=== PATIENT | male | born 1950 | race Caucasian/White ===

== ENCOUNTER 2019-02-06 08:32 | Inpatient (IN) | payer MEDICARE, OTHER, SELFPAY ==
[2019-02-03 11:46] VITALS: BMI 29.3
[2019-02-06] VITALS (17 sets, daily range): BP systolic 114–170; BP diastolic 51–99; PULSE 50–70; RESP 10–16; TEMP 35.8–36.6; O2SAT 93–100; BMI 29.3
--- NOTE | 2019-02-06 | DI.RAD.S_ITS ---
PROCEDURE: XR HIP W PEL IF DONE LT 2V INDICATIONS: ANTERIOR HIP ARTHROPLASTY TECHNIQUE: 2 view(s) of the left hip acquired. COMPARISON: [facility], CR, XR PELVIS 1 OR 2 VIEWS, 01/01/2019, 12:11. FINDINGS: Bones: Patient is status post left hip arthroplasty, with hardware components in expected positions. The hip joint appears congruent. The visualized bony structures appear intact. Soft tissues: Overlying postoperative changes are noted. No suspicious soft tissue densities. IMPRESSION: Normal alignment after left total hip arthroplasty. Dictated by: Sanjeev Higuera M.D. on 02/06/2019 at 14:30 Approved by: Sanjeev Higuera M.D. on 02/06/2019 at 14:31
--- NOTE | 2019-02-06 08:39 | DI.RAD.S_ITS ---
PROCEDURE: XR PELVIS 1-2V INDICATIONS: post op films TECHNIQUE: 1 view of the lower pelvis acquired. COMPARISON: Preoperative radiographs 01/01/2019. FINDINGS: Bones: Patient is status post left hip arthroplasty, with hardware components in expected positions. The hip joint appears congruent. The visualized bony structures appear intact. Soft tissues: Overlying postoperative changes are noted. No suspicious soft tissue densities. IMPRESSION: Expected appearance of the left total hip arthroplasty. Dictated by: Dontae Rand M.D. on 02/06/2019 at 15:00 Approved by: Dontae Rnad M.D. on 02/06/2019 at 15:01
[2019-02-06] MEDS: LACTATED RINGERS 1,000 ML 42 ML IV ×2 (10:01→13:54)
[2019-02-06] MEDS: ACETAMINOPHEN 325 MG TABLET 975 MG PO (10:04)
[2019-02-06] MEDS: MELOXICAM 7.5 MG TABLET 15 MG PO (10:05)
[2019-02-06] MEDS: PREGABALIN 75 MG CAPSULE PO (10:05)
--- NOTE | 2019-02-06 10:34 | PM.PREOP ---
Pre-operative Note Interval Note History & Physical reviewed/Exam performed by Physician: Yes Changes to H&P: No H&P completed within 30 days and has changed as indicated here:: Plan for L anterior DEVIKA.
[2019-02-06] MEDS: CEFAZOLIN 2 GM/100 ML FROZ.PIGGY IV ×2 (11:28→20:09)
[2019-02-06] MEDS: TRANEXAMIC ACID 1,000 MG VIAL 1000 MG INJ (12:08)
--- NOTE | 2019-02-06 12:10 | SUR.OPER ---
Supine on padded Philip table with bilateral legs secured in padded positioning boots and suspended in positioning spars, operative leg in traction per surgeon. Head on one pillow. Bilateral arms secured on padded armboard <90 degrees abduction. Padded perineal post in place per surgeon.
[2019-02-06] MEDS: KETOROLAC 30 MG/ML VIAL IV (12:18)
[2019-02-06] MEDS: MORPHINE 4 MG/ML INJ INJ (12:19)
[2019-02-06] MEDS: ROPIVACAINE 0.5% PF 5 MG/ML 20ML VIAL 60 ML INJ (12:20)
--- NOTE | 2019-02-06 14:05 | PM.OP.1 ---
Operative Date/Time/Diagnoses Date of procedure: 02/06/19 Time of procedure: 14:05 Pre-op diagnosis: L hip OA Post-op diagnosis: same Procedure & Clinicians Procedure: Left anterior DEVIKA Same procedure as scheduled: Yes Indications: Left hip OA Surgeon: Vinnie Vicente Reducing System Operator: Leilani Gupta Anesthesia Type: General and Spinal Operative Notes Findings: left hip OA Closure Type: primary Specimen(s): none sent Prosthetic devices, grafts, tissues, transplants, or devices: Bishop and Nephew R3 58 mm cup Bishop and Nephew size 6 high offset anthology stem 36 + 4 mm Oxinium head Estimated Blood Loss (mL): 200 Blood products transfused: none Procedure in detail: Patient was met in the preoperative holding area where the site and side of surgery was marked by MD. All last minute questions were reviewed with the patient and his and answered. The patient was then brought back in the operating room where a spinal anesthesia was then placed. Patient was then transferred onto the Phoenix table. And induced under general anesthesia. Both feet were placed in the Phoenix table boots. The left hip was then prepped and draped in the normal sterile fashion. A time-out was performed verifying site and side of surgery as well as the name and MRN of the patient. A 7 cm long incision was made using a 10. Blade. Electrocautery was then used down to the level of the tensor fascia. Tensor fascia was then split using 10. Blade. An Allis clamp was then placed on the medial leaflet of the tensor fascia. The tensor was then retracted laterally. At this point a Cobra was then placed over the superior neck. Electrocautery was used to then coagulate the circumflex vessels. Once this was complete a Cobra was placed over the inferior neck well. A Hohmann retractors placed over the anterior acetabulum. And the capsule was then split from the Hohmann retractor to the shoulder of the greater trochanter. The capsule leaflets were then tagged and released. An oscillating saw was then used to make a femoral neck cut based off her template height. The femur was externally rotated 45? and a corkscrew was placed in the femoral head. The femoral head was then removed. A Cobra was then placed between the capsule and labrum of the posterior aspect of the acetabulum. The labrum was then removed with a # 10 blade. X-ray was then brought in to match our inlet outlet view based off his standing templated films. We began reaming with a 50 mm Reamer and increased by 2 mm increments up to a 56 mm Reamer. A 57 mm Reamer was then used. A 58 mm cup was selected. This was then malleted that into place under fluoroscopic guidance. 1x 25 and 1x 20 mm screws were then placed. The polyethylene liner was then malleted into place and found to be secure. We then turned our attention to the femoral prep. The femoral elevator hook was then placed. The leg was then dropped down to the floor and abducted. A Pena retractor was placed over the medial calcar. A Hohmann retractor was placed over the tip of the greater trochanter the capsule overlying the short external rotators was then released. The short external rotator tendon was then partially released to allow the femur to be elevated. The Hohmann retractor was then replaced with a Dr. Potts retractor. We used a canal finer followed by a starting broach followed by a size 1 and increasing sequentially to a size 6. We then trialed with a high offset and selected a +4 mm head length. The hip was stable to 90? of external rotation in neutral extension as well as full extension down to level of the floor and 90? of external rotation. The hip was then dislocated the trial head neck and broach were then removed a size 6 high offset anthology stem was then selected and malleted into place. Careful inspection of the calcar revealed no fractures. A size 36 mm + 4 Oxinium head was then selected mallet into place. The hip was then reduced and again taken through range of motion found to be stable. The wound was then irrigated with normal saline and local injection was then performed the capsule was then repaired with FiberWire followed by running 1. Vicryl in the tensor fascia followed by 2-0 Vicryl in the subcutaneous layer followed by strata Fix 3-0 in the subcuticular. Dermabond was then placed. An Aquacel dressing placed. Patient was then awoken from general anesthesia and transferred to the hospital room bed. Complications: none Post-operative Condition: stable Disposition: PACU Plan for aftercare: Patient will be weight-bearing as tolerated left lower extremity. No hip precautions. DVT prophylaxis will consist of ASA 81 mg b.i.d. for 6 weeks
--- NOTE | 2019-02-06 15:02 | SUR.PHASEI ---
1445 called report to floor and spoke with Kiesha. Report given but staff unable to take report at this time due to shift change. Patient remains stable and denies any pain at this time.
--- NOTE | 2019-02-06 15:09 | SUR.PHASEI ---
Called Мария, patient's , and updated status of patient at patient's request.
[2019-02-06] MEDS: LACTATED RINGERS 1,000 ML 125 ML IV (16:58)
[2019-02-06] MEDS: ONDANSETRON 4 MG/2 ML INJ IV (17:03)
[2019-02-06 17:35] LABS: Add Manual Diff / Slide Review NO; Basophils Absolute Auto 0 /uL (0-100); Basophils Percent Auto 0.1 % (0-2); Eosinophils Absolute Auto 0 /uL (0-450); Hematocrit 39.9 % (41-53); Hemoglobin 13.3 g/dL (13.5-17.5); Lymphocytes Absolute Auto 700 /uL (1100-4500); Lymphocytes Percent Auto 4.1 % (25-40); Mean Corpuscular HGB Conc 33.4 % (30-36); Mean Corpuscular Hemoglobin 30.5 PG (26-34); Mean Corpuscular Volume 91.2 fL (80-100); Monocytes Absolute Auto 300 /uL (0-900); Monocytes Percent Auto 1.6 % (3-14); Neutrophils Absolute Auto 16400 /uL (1500-7000); Neutrophils Percent Auto 94.2 % (50-75); Platelet Count 120 X10^3/uL (150-400); Red Blood Cell Count 4.37 X10^6/uL (4.5-5.9); Red Cell Distribution Width 13.4 % (11.6-14.8); White Blood Cell Count 17.4 X10^3/uL (4.5-11.0)
--- NOTE | 2019-02-06 17:53 | PT.IIE ---
Current Diagnoses Unilateral primary osteoarthritis, left hip (02/06/19) Surgery Performed Operation Date: 02/06/19 09:45 Actual Procedures p Total Hip Arthroplasty/Anterior Approach(Left) - Vinnie Vicente MD Surgical History (Last Updated 02/03/19 @ 12:31 by Em Zelaya RN) Hx of arthroscopy of left knee (Acute) Medical History (Last Updated 02/03/19 @ 12:33 by Em Zelaya RN) Bradycardia (Acute) Depression (Acute) Eczema (Acute) Edema (Acute) Fibromyalgia (Acute) HLD (hyperlipidemia) (Acute) HTN (hypertension) (Acute) Insomnia (Acute) Osteoarthritis (Acute) Psoriasis (Acute) PTSD (post-traumatic stress disorder) (Acute) Physical Therapy Inpatient Evaluation/Re-Eval M1 PT/OT-IP Prior Functional Status Start: 02/06/19 16:53 Freq: NEEDED Status: Active Protocol: Document 02/06/19 17:00 (Rec: 02/06/19 17:53 [id number]) Medical Review Prior Functional Status Medical History Reviewed Yes Diet/Fluid Consistency Regular Communication no deficits noted. Able to make needs known Mobility and Gait Pt was independent without AD for home and community mobility, but started to use FWW occasionally since a month ago due to worseing L hip pain. Activities of Daily Living and IADL's independent for ADLs and IADLs without AD Social History Household Members spouse Living Arrangements House Number of Floors (Floors) 3 or More Floors Number of Stairs To Enter/Railing? 5 ZENON with B rails. 16 steps to 2nd level with R railing and a landing in between 16 steps to bottom level with L railing and a landing in between Home Environment Standard Height Toilet,Walk in Shower Home Equipment Front Wheel Walker,Straight Cane,Shower Seat with Backrest ,Hand Held Shower,Grab Bars In Shower Employment Status Retired Additional Social History Comment Pt lives with spouse in a 3 story split level home in [facility]. Pt stated his is very helpful and will be able to assist as needed. Although pt has 3 floors, he stated he has bedroom and bathroom for each floor so he could primarily stays on main floor if needed. He also scheduled his outpatient PT starting from next week. M2 PT-IP Current Condition Start: 02/06/19 16:53 Freq: NEEDED Status: Active Protocol: Document 02/06/19 17:00 (Rec: 02/06/19 17:53 [email or web address]) Physical Therapy Current Condition Current Condition Evaluation Date 02/06/19 Treatment Diagnosis L DEVIKA, difficulty in walking Onset Date 02/06/19 Precautions Other Precautions no hip precautions except hip hyperextension Weight Bearing Status Weight Bearing Status Weight Bear as Tolerated M3 PT-IP Subjective Start: 02/06/19 16:53 Freq: NEEDED Status: Active Protocol: Document 02/06/19 17:00 (Rec: 02/06/19 17:53 [email or web address]) Subjective Physical Therapy Visit Type Type Initial Evaluation Visit Start Time 17:00 Visit Stop Time 17:30 Total Visit Minutes 30 Number of BLADDER BLOWER Visits 0 Physical Therapy Visit Comments Patient Comments I dont have any pain at all at this point and i am ready to move. Patient Goals To return home with spouse. Therapy Pain Assessment Pain Present Pain Present Denied Pain M4 PT-IP Mobility and Gait Start: 02/06/19 16:53 Freq: NEEDED Status: Active Protocol: Document 02/06/19 17:00 HH (Rec: 02/06/19 17:53 [email or web address]) PT-Bed Mobility Assessment Supine to Sit Supine to Sit Standby Assistance,Bedrails Sit to Supine Sit to Supine Standby Assistance,Bedrails Scooting Scooting to Edge of Bed Standby Assistance PT-Transfer Assessment Sit to and From Stand Sit to and from Stand Standby Assistance,Use of Upper Extremities Equipment Transfer Assistive Device Gait Belt,Front Wheeled Walker Orthotic/Prosthetic Devices or Brace: No Transfers Transfer Destination Bed,Chair Transfer Technique amb with FWW Transfer Ability Level of Assist Standby Assistance,Use of Upper Extremities Comments Mobility Comments Pt was in bed upon assessment. Intact sensation to touch and pressure, along with gross motor control without any discomfort. Pt completed supine to long sit SBA and pivot himself to L side EOB. He then stood up with FWW SBA. Pt was able to lateral weight shift safely and denies pain. He was able to safely descend to chair with proper hand placements on armrests after amb. Call light within reach after. Gait Assessment Gait Gait Assistance Required: Standby Assistance Distance (Feet) 120 Able to Maintain Weight Bearing Status Yes During Gait Assistive Devices Assistive Device Gait Belt,Front Wheeled Walker Orthotic/Prosthetic Devices or Brace: No Gait Deviations General Gait Pattern Decreased Stride Length, Decreased Feet Clearance Factors Limiting Gait Function Factors Limiting Gait Function Decreased Activity Tolerance, Poor Safety Awareness Comments Gait Comments Pt amb from EOB to [facility] for approx 120 feet with SBA and FWW. Pt presents a close to normal step over gait pattern. He did need cue to keep his walker close during turns but he was very steady with close normal gait speed. Stair Climbing Assessment Comments Stair Climbing Comments did not assess PT-Balance Assessment Sitting Balance and Reactions Static Sitting Balance Ability Normal Dynamic Sitting Balance Ability Normal Standing Balance and Reactions Static Standing Balance Ability Normal Dynamic Standing Balance Ability Normal Device Used FWW M5 PT-IP Objective Assessments Start: 02/06/19 16:53 Freq: NEEDED Status: Active Protocol: Document 02/06/19 17:00 HH (Rec: 02/06/19 17:53 [email or web address]) Orientation Orientation/Cognition Level of Alertness Alert Orientation Name,Date,Year,Day of Week, Place,Situation Language Function Ability No Deficits Noted Safety Awareness Understands Safety Issues Memory Description No Deficits Noted Gross Range of Motion Upper Extremity ROM Assessment Within Functional Limits Lower Extremity ROM Assessment Within Functional Limits Strength Upper Extremity Strength Assessment Within Functional Limits Lower Extremity Strength Assessment Left Impaired Hip 4+/5 Coordination Assessment Gross Coordination Gross Coordination WNL Sensation Assessment Sensation Gross Sensation WNL Light Touch Intact Proprioception (Position) Intact M6 PT-IP Treatment Start: 02/06/19 16:53 Freq: NEEDED Status: Active Protocol: Document 02/06/19 17:00 HH (Rec: 02/06/19 17:53 [email or web address]) Physical Therapy Treatment Exercises Exercises Ankle Pumps,Quad Sets Education Education Provided Precautions,Weight Bearing Status,Post-Op Packet,Safety M7 PT-IP Assessment and Plan Start: 02/06/19 16:53 Freq: NEEDED Status: Active Protocol: Document 02/06/19 17:00 HH (Rec: 02/06/19 17:53 [email or web address]) PT Summary Assessment and Plan Potential Rehabilitation Potential Excellent Status of Condition at Evaluation Stable Summary Impairments Pain,ROM,Strength,Balance,Bed Mobility,Transfers,Gait, Activity Tolerance Assessment Summary Pt is a low complexity s/p POD 0 L DEVIKA (anterior approach). Pt is very close to baseline regarding his mobility and needed SBA and FWW only. Pt denies pain/discomfort during entire session and able to amb with close to normal step over gait and speed. He also demonstrates safe transfer techniques. Expect pt to be d/ c home with spouse assistance and outpatient PT to improve mobility and strength, but he has to clear rehab goals for stair climbing. Goals Bed Mobility Goal Independent Transfer Goal Independent,Front Wheeled Walker Gait Goal Independent,Front Wheel Walker Gait Distance 300 Other Goals climb 5 ZENON with B rails SBA Days to Meet Goals 3 Frequency of Treatment Frequency Of Treatment Twice a Day Treatment Plan Physical Therapy Treatment Plan Bed Mobility Training,Transfer Training,Gait Training, Therapeutic Exercise,Balance Retraining,Post Op Education, Discharge Planning,Hot or Cold Pack Other Recommendations and Next Treatment mobility as gerald Focus stair climbing if possible Recommendations To Nursing Amount of Assist Needed Standby Assistance Discharge Recommendations PT Discharge Recommendations Home with Assistance, Outpatient PT
[2019-02-06] MEDS: ACETAMINOPHEN 325 MG TABLET 650 MG PO (21:22)
[2019-02-06] MEDS: QUETIAPINE 200 MG TABLET PO (21:22)
[2019-02-06] MEDS: ASPIRIN EC 81 MG TABLET PO (21:22)
[2019-02-07] MEDS: LACTATED RINGERS 500 ML 1000 ML IV (00:30)
[2019-02-07] MEDS: LACTATED RINGERS 1,000 ML 125 ML IV (02:23)
[2019-02-07] MEDS: CEFAZOLIN 2 GM/100 ML FROZ.PIGGY IV (04:10)
[2019-02-07] MEDS: ONDANSETRON 4 MG ODT PO (04:14)
[2019-02-07 05:32] LABS: Hematocrit 34.4 % (41-53); Hemoglobin 11.7 g/dL (13.5-17.5)
--- NOTE | 2019-02-07 05:51 | PC.NURSE ---
Patient has CDI dressing, had 500 ml bolus for no output. Patient able to void 950 ml.
[2019-02-07 06:01] VITALS: BP 142/87; PULSE 61; RESP 16; TEMP 36.1; O2SAT 96
[2019-02-07 07:35] VITALS: BP 141/87; PULSE 73; RESP 17; TEMP 36.8; O2SAT 96
[2019-02-07 08:58] VITALS: BMI 29.3
--- NOTE | 2019-02-07 09:04 | DIET.PN ---
Dietary Progress Note Assessment: Mr Avila is 68y M s/p hip procedure who was referred to nutrition for intentional weight loss by consuming 1 meal per day. Pt's meal is consumed at 2pm and consists of quality pro, whole grains like barley, fruits and vegetables. Pt has lost 35# in 3 mo and has 10# to go until he reaches his goal weight of 230# which was his weight in high school. This RD sees little issue with his diet plan as once he reaches his goal he will ease the restrictions while maintaining portion control, avoiding empty calories, and including physical activity as his hip was a barrier to activity. HT: 193cm WT: 109.3kg BMI: 29.3 Nutrition Diagnosis: none Interventions: 1. Add one additional serving PRO/d for next month to support healing. Diet Order: General EER: 2500kcal, 110g PRO, 3L fluids Monitoring/Evaluations: as requested
--- NOTE | 2019-02-07 09:17 | CM.DANOTE ---
DCP: Case received, EMR reviewed and met with patient. Introduced self and role. Was able to meet with patient in his room and obtain baseline history and activity information. DCP assessment completed with information currently available. Patient is a 68 year old male who admitted yesterday morning to the care of the orthopedic team. PCP: Dr. Marks Payer: confirmed: Medicare/[facility]. Patient came to the hospital via private vehicle for a surgical procedure. He had left total hip arthroplasty. Patient has had chronic pain, which has affected his lower back and lower extremity. Met with patient in his room. He is alert and oriented, pleasant. He had just seen Ariane, aviation maintenance technician, as well. Patient resides on [facility] with his spouse, Мария. He mentioned that he had just gotten a walker and cane, which is in his room. Prior, he had not been using any DME supplies. He is independent, has been driving, but stated, it was hard at times, because of the pain. P: Patient will be working with P.T. DCP to be available for any resources that he may need. His goal is to go home with his spouse's support, and pursue outpatient P.T. Lara Zamora RN/Supervisor Welding Equipment Repairer
[2019-02-07] MEDS: ASPIRIN EC 81 MG TABLET PO (09:34)
[2019-02-07] MEDS: DULOXETINE 30 MG CAPSULE 60 MG PO (09:34)
[2019-02-07] MEDS: QUINAPRIL 20 MG TABLET 60 MG PO (09:34)
[2019-02-07] MEDS: ACETAMINOPHEN 325 MG TABLET 650 MG PO (09:34)
[2019-02-07] MEDS: VENLAFAXINE 37.5 MG TABLET 75 MG PO (09:34)
[2019-02-07] MEDS: ATORVASTATIN 20 MG TABLET 80 MG PO (09:34)
[2019-02-07] MEDS: OXYCODONE IR 5 MG TABLET PO ×2 (09:35→13:30)
--- NOTE | 2019-02-07 09:51 | PM.DS.1 ---
History of Present Illness History of Present Illness Date Patient Seen: 02/07/19 Time Patient Seen: 09:51 Chief complaint: [id number] Left Total Hip Arthroplasty Narrative: Left hip OA Discharge Providers Provider Date of admission: 02/06/19 08:32 Discharge Date: 02/07/19 Primary care physician: Moiz Marks MD Consults: 02/06/19 08:39 Consult to Anesthesiology Routine Comment: Consulting Provider: Anesthesiologist Reason for consultation: Regional block for post operative pain control 02/06/19 16:00 Consult to Dietitian, Adult Routine Comment: Reason For Exam: Intentional weight loss. Eats one meal daily. 02/06/19 16:02 Consult to Discharge Planning Routine Comment: Consult to Physical Therapy Evaluate & Treat Comment: Physician Instructions: post op DEVIKA protocol Consult to Respiratory Therapy Evaluate & Treat Comment: Physician Instructions: Evaluate and treat Discharge provider: Piedad Knox PA-C Summary Hospital Course Discharge Diagnosis: s/p left total hip arthroplasty Thrombocytopenia Psoriasis Hypertension Fibromyalgia Depression Degenerative joint disease Arthritis Hospital Course: Good was admitted for left total hip arthroplasty anterior approach with Dr. Vicente. Hospital course unremarkable. On postop day 1. Patient was ready to discharge home. Patient's pain well controlled. He was mobilizing with physical therapy throughout his stay. ASA for VTE prophylaxis. Pain well controlled with oxycodone, and Tylenol. Status at Discharge Functional status at discharge: uses cane/walker Exam Vital Signs (past 8 hours): - 02/07/19 06:01 02/07/19 07:35 Temperature 96.9 F L 98.2 F Pulse Rate 61 73 Respiratory Rate 16 17 Blood Pressure 142/87 H 141/87 H Pulse Oximetry 96 96 Oxygen Delivery Method Room Air Oxygen Flow Rate 0 Narrative Exam Narrative: Patient lying in bed in no acute distress. He is alert and oriented x3. Calves are soft, compressible, nontender bilaterally. Pulses are symmetrical. Sensation intact light touch throughout bilateral lower extremities. There was a small bruise on the medial aspect of dressing. Objective Labs Result Diagrams: 02/07/19 05:25 Labs: Laboratory Results - last 24 hr 02/06/19 02/07/19 17:27 05:25 WBC 17.4 H RBC 4.37 L Hgb 13.3 L 11.7 L Hct 39.9 L 34.4 L MCV 91.2 MCH 30.5 MCHC 33.4 RDW 13.4 Plt Count 120 L Neut % (Auto) 94.2 H Lymph % (Auto) 4.1 L [place] % (Auto) 1.6 L Eos % (Auto) 0.0 L Baso % (Auto) 0.1 Neut # (Auto) 04493 H Lymph # (Auto) 700 L [place] # (Auto) 300 Eos # (Auto) 0 Baso # (Auto) 0 Discharge Plan Discharge Plan Patient Disposition: Home Discharge orders & Medications Prescriptions: New acetaminophen 325 mg Tablet 650 mg PO TID Qty: 30 RF: 0 aspirin 81 mg Tablet,Delayed Release (Dr/Ec) 81 mg PO BID Qty: 30 RF: 0 oxycodone 5 mg Tablet 5 mg PO Q4-6H PRN (Reason: Pain, Moderate (4-6)) Qty: 50 RF: 0 Continued atorvastatin 80 mg Tablet 80 mg PO QAM RF: 0 bisoprolol-hydrochlorothiazide 5-6.25 mg Tablet 1.5 tab PO DAILY RF: 0 quetiapine 100 mg Tablet 200 mg PO BEDTIME RF: 0 quinapril 40 mg Tablet 60 mg PO QAM RF: 0 duloxetine 60 mg Capsule,Delayed Release(Dr/Ec) 60 mg PO DAILY RF: 0 venlafaxine 75 mg Tablet 75 mg PO DAILY RF: 0 prazosin 1 mg Capsule 4 mg PO BEDTIME RF: 0 lorazepam 1 mg Tablet 2 mg PO BEDTIME RF: 0 Discontinued aspirin 81 mg Tablet,Delayed Release (Dr/Ec) 81 mg PO DAILY RF: 0 Follow up/Referrals: Vinnie Vicente MD [Physician] - As previously scheduled Moiz Marks MD [Primary Care Provider] - Diet/Activity/Treatments Activity: Anterior hip precautions Skin/Wound/Dressing Care Report to your healthcare provider any signs of infection, such as:: chills, fever and increased pain Dressing: leave in place until appointment Visit Report/Discharge Packet Instructions: DI for Hip Replacement, DI for Constipation, How to Prevent Falls Discharge Data Primary Care Provider: Moiz Marks Quality VTE Deep Vein Thrombosis/Pulmonary Embolism Present on Admission: No
--- NOTE | 2019-02-07 10:52 | PT.IPTN ---
Current Diagnoses Unilateral primary osteoarthritis, left hip (02/06/19) Surgery Performed Operation Date: 02/06/19 09:45 Actual Procedures p Total Hip Arthroplasty/Anterior Approach(Left) - Vinnie Vicente MD Physical Therapy Treatment Note M2 PT-IP Current Condition Start: 02/06/19 16:53 Freq: NEEDED Status: Active Protocol: Document 02/07/19 09:54 NFW (Rec: 02/07/19 10:52 NFW [id number]) Physical Therapy Current Condition Precautions Anterior Hip Precautions No Hip Extension,No Hip External Rotation Weight Bearing Status Weight Bearing Status Weight Bear as Tolerated M3 PT-IP Subjective Start: 02/06/19 16:53 Freq: NEEDED Status: Active Protocol: Document 02/07/19 09:54 NFW (Rec: 02/07/19 10:52 NFW [id number]) Subjective Physical Therapy Visit Type Type Treatment Note Visit Start Time 09:54 Visit Stop Time 10:30 Total Visit Minutes 36 Number of GLUE MAKER BONE Visits 0 Physical Therapy Visit Comments Patient Comments On the most part patient has been pain free since surgery. This am, however, he felt a twinge and rated it at a level of 2. Therapy Pain Assessment Pain When Pain Assessed During Mobility Pain Present Pain Present Pain Reported Location Left Hip Description Sharp M4 PT-IP Mobility and Gait Start: 02/06/19 16:53 Freq: NEEDED Status: Active Protocol: Document 02/07/19 09:54 NFW (Rec: 02/07/19 10:52 NFW [id number]) PT-Bed Mobility Assessment Supine to Sit Supine to Sit Independent Sit to Supine Sit to Supine Independent Scooting Scooting to Edge of Bed Independent Scooting Up and Down in Bed Independent PT-Transfer Assessment Sit to and From Stand Sit to and from Stand Independent Equipment Transfer Assistive Device None Transfers Transfer Destination Bed,Chair Transfer Ability Level of Assist Standby Assistance Gait Assessment Gait Gait Assistance Required: Standby Assistance Distance (Feet) 500 Able to Maintain Weight Bearing Status Yes During Gait Assistive Devices Assistive Device Front Wheeled Walker Orthotic/Prosthetic Devices or Brace: No Gait Deviations General Gait Pattern Flexed Trunk Factors Limiting Gait Function Factors Limiting Gait Function Abnormal Tonal Influences, Decreased Activity Tolerance Comments Gait Comments When arrived in room patient was standing and had been walking around the room without any assistive devices. Gait looked good. At his request, started walking out in hallway, after ~ 60' patient experienced sharp pain just distal to the incision of LLE. Pain sharp enough that the patient did not want to proceed. Returned to room , rested then guided patient in ambulation with FWW. Min to no pain noted. Able to walk ~500' with verbal cuing for proper sequence in using FWW, pacing of his walk, proper upright posture. Did require support when wb on LLE . Stair Climbing Assessment Evaluation Level of Assist On Stairs Standby Assistance Devices Stair Climbing Assistive Devices Left Railing,Right Railing Technique/Endurance Stair Climbing Direction Ascend and Descend Stair Climbing Technique Step to Step Number of Steps Climbed 3 Stair Climbing Set # Repetitions (reps) 2 Comments Stair Climbing Comments Step to gait with ascending and descending stairs using right hand rail. Required cuing to remember proper sequence. No pain noted with stairs. PT-Balance Assessment Sitting Balance and Reactions Static Sitting Balance Ability Normal Dynamic Sitting Balance Ability Normal Standing Balance and Reactions Static Standing Balance Ability Normal Dynamic Standing Balance Ability Normal M5 PT-IP Objective Assessments Start: 02/06/19 16:53 Freq: NEEDED Status: Active Protocol: Document 02/07/19 09:54 NFW (Rec: 02/07/19 10:52 NFW [id number]) Orientation Orientation/Cognition Level of Alertness Alert M6 PT-IP Treatment Start: 02/06/19 16:53 Freq: NEEDED Status: Active Protocol: Document 02/07/19 09:54 NFW (Rec: 02/07/19 10:52 NFW [id number]) Physical Therapy Treatment Exercises Exercises Ankle Pumps,Gluteal Sets,Quad Sets,Heel Slides Education Education Provided Precautions Other Treatments Other Treatment Performed Repetition with pacing and slowing down with his actvities. Reminders of no twisting on LLE. M7 PT-IP Assessment and Plan Start: 02/06/19 16:53 Freq: NEEDED Status: Active Protocol: Document 02/07/19 09:54 NFW (Rec: 02/07/19 10:52 NFW [id number]) PT Summary Assessment and Plan Potential Rehabilitation Potential Excellent Status of Condition at Evaluation Stable Summary Impairments Gait,Activity Tolerance Progress Towards Goals Safe For Discharge Assessment Summary Patient initially was overconfident in his abilities and had hoped to ambulate without FWW. He now realizes that he needs to use the walker and was able to control the sharp pain that occured just inferior to his incision. Required emphasis on pacing and thinking about proper sequence in using walker and with ascending/descending stairs using handrails. Patient is ready for discharge . Goals Bed Mobility Goal Independent Transfer Goal Independent Gait Goal Standby Assistance Frequency of Treatment Frequency Of Treatment Discharge Discharge Recommendations PT Discharge Recommendations Home with Assistance
[2019-02-07 11:35] VITALS: BP 142/93; PULSE 67; RESP 16; TEMP 36.6; O2SAT 96
--- NOTE | 2019-02-07 13:37 | PC.NURSE ---
Pt is dressed, packed up, and ready for discharge home with Spouse who is coming on the ferry from [place] and is expected at 1330. Pt has a priority boarding pass to return to [place] with Spouse. IV has been removed. Went over d/c instructions with Pt-discussed d/c meds, time of last dose, reviewed stroke education, hip precautions, encouraged fluid intake to prevent constipation or dehydration, no driving while on Narcotics. Oxycodone given for pain control with transfer. Pt denies further questions and was taken out via w/c by [employer] to POV with Spouse and all belongings.
== END 2019-02-07 13:57 | disposition home or self-care (01) | DRG 470 ==
PROVIDERS: Admitting Provider Orthopaedic Surgery Adult Reconstructive Orthopaedic Surgery; Family Provider Family Medicine; PCP Family Medicine; Visit Provider Orthopaedic Surgery Adult Reconstructive Orthopaedic Surgery
PROC: 0SRB02Z Replacement of Left Hip Joint with Metal on Polyethylene Synthetic Substitute, Open Approach (ICD-10-PCS; CPT 27130; principal; 2019-02-06 09:45)
DX: M16.12 Unilateral primary osteoarthritis, left hip (principal); D69.6 Thrombocytopenia, unspecified; I10 Essential (primary) hypertension; M79.7 Fibromyalgia; F32.9 Major depressive disorder, single episode, unspecified
CPT/HCPCS: 36415; 72170; 73502; 76000; 85014; 85018; 85025; 94762; 97110; 97116; 97161; 97530; C1776; J0690; J1885; J2250; J2270; J2274; J2405; J2704; J3010